=== PATIENT | female | born 1940 | race Caucasian/White ===

== ENCOUNTER → 2016-12-10 | Outpatient (CLI) | payer OTHER ==
[~2016-12-10] MED LIST: 5-FU IV; ACET65TA OR; ASPI81TA83 OR; LEUCOVORIN IV; LEVA500T OR; LISI5TAB PO; NEULASTA IV; OXALIPLATIN IV; SIMV10TA2 PO; VICO5TAB OR; [UNRECOGNIZED DRUG - OTHER] IV
--- NOTE | 2016-12-10 12:48 | REPMRS ---
Patient History The patient states she had a clinical breast exam in 11/2016. Patient is postmenopausal, has history of colorectal cancer at age 70, and had previous chemotherapy at age 70. No known family history of cancer. Digital Woman Screen Mammo: December 10, 2016 - Exam #: [id number] Bilateral CC and MLO view(s) were taken. Technologist: Binta Vo, Technologist Prior study comparison: December 12, 2015, digital woman screen mammo performed at [facility]. December 05, 2014, digital woman screen mammo performed at [facility]. FINDINGS: There are scattered fibroglandular densities. There has been no change in the appearance of the mammogram from the prior studies. There is a mild amount of residual fibroglandular tissue which is fairly symmetric. There is no interval development of dominant mass, architectural distortion, or clustered microcalcification suggestive of malignancy. ASSESSMENT: BI-RADS/ACR category 1 mammogram. Negative. Recommendation Routine screening mammogram in 1 year (for women over age 40). This mammogram was interpreted with the aid of an FDA-approved computer-aided dectection system. Electronically Signed By: Moe Crespo MD 12/10/16 2128
== END ==
LOC: M WHC 10:14
PROVIDERS: ATTEND Nurse Practitioner Women's Health
DX: Z01.419 Encounter for gynecological examination (general) (routine) without abnormal findings (principal); Z12.31 Encounter for screening mammogram for malignant neoplasm of breast; Z12.12 Encounter for screening for malignant neoplasm of rectum
CPT/HCPCS: 82270; G0101; G0202

== ENCOUNTER → 2017-02-01 | Outpatient (REF) | payer OTHER ==
[2017-02-01 14:58] LABS: FREE T4 1.22 NG/DL (0.76-1.46)
== END ==
LOC: M LAB REF 13:24
PROVIDERS: ATTEND Internal Medicine Medical Oncology
DX: C18.9 Malignant neoplasm of colon, unspecified (principal); Z79.899 Other long term (current) drug therapy

== ENCOUNTER → 2017-08-26 | Outpatient (REF) | payer OTHER ==
[2017-08-26 17:52] LABS: CARCINOEMBRYONIC ANTIGEN 2.3 NG/ML (<2.5)
== END ==
LOC: M LAB REF 16:40
DX: Z85.038 Personal history of other malignant neoplasm of large intestine (principal); R63.4 Abnormal weight loss
CPT/HCPCS: 82378

== ENCOUNTER → 2017-12-13 | Outpatient (CLI) | payer OTHER | LOC: M WHC 10:06 | DX: Z12.31 Encounter for screening mammogram for malignant neoplasm of breast (principal); Z01.419 Encounter for gynecological examination (general) (routine) without abnormal findings (principal); Z78.0 Asymptomatic menopausal state; Z86.010 Personal history of colon polyps; Z12.12 Encounter for screening for malignant neoplasm of rectum; Z92.21 Personal history of antineoplastic chemotherapy | CPT/HCPCS: 77067 ==

== ENCOUNTER → 2018-02-01 | Outpatient (REF) | payer OTHER ==
[2018-02-01 14:28] LABS: FERRITIN 58 NG/ML (8-252); IRON (FE) 76 UG/DL (50-170); PERCENT SATURATION 27.5 % (13.2-45.0); TOTAL IRON BINDING CAPACITY 276 UG/DL (250-450)
== END ==
LOC: M LAB REF 13:34
DX: C18.9 Malignant neoplasm of colon, unspecified (principal)
CPT/HCPCS: 82378

== ENCOUNTER → 2019-01-18 | Outpatient (REF) | payer MEDICARE ==
[~2019-01-18] MED LIST changes: +ASPI81TA26 PO; +CARB25TA9 PO; +GABA-843 PO; +MULTCAP PO; +NYST1POW9 TOP; +RASA1TAB PO
[2019-01-23 17:58] LABS: FERRITIN 32 NG/ML (8-252); IRON (FE) 72 UG/DL (50-170); PERCENT SATURATION 23.8 % (13.2-45.0); TOTAL IRON BINDING CAPACITY 302 UG/DL (250-450)
[2019-01-23 18:04] LABS: VITAMIN B12 LEVEL 542 PG/ML
[2019-01-23 18:05] LABS: FOLATE > 24.0 NG/ML
== END ==
LOC: M LAB REF 16:46
PROVIDERS: ATTEND Family Medicine
DX: E78.5 Hyperlipidemia, unspecified (principal); D64.9 Anemia, unspecified

== ENCOUNTER → 2019-01-23 | Outpatient (CLI) | payer MEDICARE ==
--- NOTE | 2019-01-23 13:31 | REPMRS ---
Patient History The patient states she had a clinical breast exam in 01/2019. No known family history of cancer. Digital Woman Screen Mammo: January 23, 2019 - Exam #: [id number] Bilateral CC and MLO view(s) were taken. Technologist: Rossi Salinas, Technologist Prior study comparison: December 13, 2017, digital woman screen mammo performed at [facility]. December 10, 2016, digital woman screen mammo performed at [facility]. December 12, 2015, digital woman screen mammo performed at [facility]. FINDINGS: There are scattered fibroglandular densities. There has been no change in the appearance of the mammogram from the prior studies. There is a mild amount of scattered fibroglandular density which is fairly symmetric. There is no interval development of dominant mass, architectural distortion, or clustered microcalcification suggestive of malignancy. 3-D tomosynthesis shows no additional findings. Assessment: BI-RADS/ACR category 1 mammogram. Negative Mammogram. Recommendation Routine screening mammogram of both breasts in 1 year (for women over age 40). This patient's Lifetime Breast Cancer RIsk is estimated at 2.1 %. This mammogram was interpreted with the aid of an FDA-approved computer-aided dectection system. Electronically Signed By: Manpreet Grace MD 01/23/19 0152
== END ==
LOC: M WHC 11:54
PROVIDERS: ATTEND Nurse Practitioner Women's Health
DX: Z01.419 Encounter for gynecological examination (general) (routine) without abnormal findings (principal); Z12.31 Encounter for screening mammogram for malignant neoplasm of breast
CPT/HCPCS: 77063; 77067; G0101

== ENCOUNTER → 2019-02-13 | Outpatient (CLI) | payer MEDICARE ==
--- NOTE | 2019-02-13 13:50 | REP ---
Clinical: Pelvic pain . Technique: Transabdominal pelvic ultrasound followed by transvaginal examination for better evaluation of the endometrium and adnexa with color Doppler evaluation of the ovaries. Findings: Bladder is unremarkable and measures 9.8 x 9.7 x 6.9 cm . Anteverted uterus measures 7.0 x 3.6 x 5.6 cm with 3.9 x 3.4 x 3.2 cm degenerating right-sided fibroid . The endometrial complex measures 2.9 mm thickness. No discrete uterine or endometrial abnormalities are appreciated. Right ovary is not visualized. Left ovary is normal in appearance and vascularity without torsion and measures 1.3 x 0.6 x 1.4 cm; RI 0.47. No pelvic free fluid or adnexal mass lesion Impression: 1. A 3.9 cm degenerating fibroid. 2. Normal left ovary. Right ovary not visualized.
== END ==
LOC: M WHC 12:15
PROVIDERS: ATTEND Nurse Practitioner Women's Health
DX: R10.2 Pelvic and perineal pain (principal)

== ENCOUNTER → 2019-12-28 | Outpatient (CLI) | payer MEDICARE ==
[~2019-12-28] MED LIST changes: +GASTROGRAFIN SOLUTION 30ML (Q9963) As Ordered ONE; +ISOVUE-370 76% 100ML VIAL As Ordered ONE; +SIMV10TA21 PO
--- NOTE | 2019-12-28 15:21 | REP ---
REASON: Colon carcinoma. Latest prior for comparison is 04/27/2016. CONTRAST TODAY: 100 mL Isovue-370. There is no mediastinal or hilar adenopathy. There are no pleural or pericardial effusions. The imaged osseous structures are unchanged. There are chronic changes, status quo. For description of the imaged upper abdomen please see the abdominal and pelvic CT report also made today. Evaluation of the lung haque shows stable-appearing chronic fibrotic and/or subsegmental atelectatic changes and a stable right middle lobe nodule, which is pleural based. No new abnormal nodules, masses, or opacities have developed. IMPRESSION: Stable CT findings as described above. Electronically Signed by Karel Schmid DO 12/28/2019 04:00 P
--- NOTE | 2019-12-28 15:33 | REP ---
REASON FOR EXAM: History of colon carcinoma followup. Latest prior abdominal CT, 06/07/2016, reviewed along with latest prior pelvic CT of 09/15/2017. CONTRAST TODAY: 100 mL Isovue-370. There is no significant change in appearance of the liver, gallbladder, spleen, pancreas, adrenal glands, or kidneys. The abdominal aorta and para-aortic regions are unchanged. The bowel loops and their mesenteries are essentially unchanged. There is no free fluid or free air. There is no evidence of an intra-abdominal mass or adenopathy. CT PELVIS: Uterine myomatous changes are noted, status quo. There is no pelvic mass or adenopathy. There is no free fluid or free air. The bowel loops and their mesenteries are again seen to be within normal limits. Bone window technique throughout the examination shows no significant change in appearance of the osseous structures. IMPRESSION: No significant change when compared to multiple prior exams. There is no evidence of acute or recurrent disease. Electronically Signed by Karel Schmid DO 12/28/2019 04:00 P
== END ==
LOC: M RAD 12:05
PROVIDERS: ATTEND Internal Medicine Hematology
DX: C18.9 Malignant neoplasm of colon, unspecified (principal); R91.8 Other nonspecific abnormal finding of lung field
CPT/HCPCS: 71260; 74177; Q9963; Q9967

== ENCOUNTER → 2020-01-14 | Outpatient (CLI) | payer MEDICARE ==
[~2020-01-14] MED LIST changes: -GASTROGRAFIN SOLUTION 30ML (Q9963) As Ordered ONE; -ISOVUE-370 76% 100ML VIAL As Ordered ONE
== END ==
LOC: M LABSMTC 11:31
PROVIDERS: ATTEND Anesthesiology
DX: Z01.818 Encounter for other preprocedural examination (principal); Z11.59 Encounter for screening for other viral diseases
CPT/HCPCS: C9803; U0003

== ENCOUNTER 2020-01-17 07:33 | Day surgery (SDC) | payer MEDICARE ==
[~2020-01-17] VITALS: Ht 165.1 cm; Wt 80.2 kg
[~2020-01-17 07:33] MED LIST changes: +LIDOCAINE 2% 100MG/5ML SDV (FOR ANES.) As Ordered ONE; +NS 1,000 ML IV ONE; +propofoL 200 MG/20 ML VIAL As Ordered ONE
[2020-01-17] MEDS ORDERED: propofoL 200 MG/20 ML VIAL As Ordered ONE (08:50)
--- NOTE | 2020-01-17 09:26 | ROOR ---
Patient Name: Ellie Hernandez Procedure Date: 01/17/2020 8:53 AM Date of : 1940 Age: 79 Room: [facility] Gender: Female Note Status: Finalized Procedure: Colonoscopy Indications: High risk colon cancer surveillance: Personal history of colon cancer, Last colonoscopy: July 2018, Patient had right hemicolectomy fo cancer December 2010. Recent CEA slightly increased to 3.7 Providers: Faheem Aguilar MD Referring MD: Lester Huynh MD Requesting Provider: Medicines: Monitored Anesthesia Care Complications: No immediate complications. Procedure: Pre-Anesthesia Assessment: - Prior to the procedure, a History and Physical was performed, and patient medications and allergies were reviewed. The patient is competent. The risks and benefits of the procedure and the sedation options and risks were discussed with the patient. All questions were answered and informed consent was obtained. Patient identification and proposed procedure were verified by the physician, the nurse and the anesthesiologist in the procedure room. Mental Status Examination: alert and oriented. Prophylactic Antibiotics: The patient does not require prophylactic antibiotics. Prior Anticoagulants: The patient has taken no previous anticoagulant or antiplatelet agents. ASA Grade Assessment: III - A patient with severe systemic disease. After reviewing the risks and benefits, the patient was deemed in satisfactory condition to undergo the procedure. The anesthesia plan was to use monitored anesthesia care (MAC). Immediately prior to administration of medications, the patient was re-assessed for adequacy to receive sedatives. The heart rate, respiratory rate, oxygen saturations, blood pressure, adequacy of pulmonary ventilation, and response to care were monitored throughout the procedure. The physical status of the patient was re-assessed after the procedure. The Colonoscope was introduced through the anus and advanced to the ileocolonic anastomosis. The colonoscopy was performed without difficulty. The patient tolerated the procedure well. The quality of the bowel preparation was excellent. Findings: The perianal and digital rectal examinations were normal. Multiple medium-mouthed diverticula were found in the sigmoid colon. There was evidence of a prior end-to-end ileo-colonic anastomosis in the proximal transverse colon. This was patent and was characterized by healthy appearing mucosa. The exam was otherwise without abnormality. Impression: - Diverticulosis in the sigmoid colon. - Patent end-to-end ileo-colonic anastomosis, characterized by healthy appearing mucosa. - The examination was otherwise normal. - No specimens collected. Recommendation: - Discharge patient to home. - Resume previous diet. - Continue present medications. - Repeat colonoscopy in 3 years for surveillance. Faheem Aguilar MD Faheem Aguilar MD 01/17/2020 9:26:05 AM Electronically signed by Faheem Aguilar MD Number of Addenda: 0 Note Initiated On: 01/17/2020 8:53 AM Estimated Blood Loss: Estimated blood loss: none.
[2020-01-17 09:40] VITALS: BP 124/71
== END 2020-01-17 10:12 | disposition home or self-care (01) ==
LOC: M OPP 07:33
PROVIDERS: ATTEND Surgery
DX: K57.30 Diverticulosis of large intestine without perforation or abscess without bleeding (principal); Z98.0 Intestinal bypass and anastomosis status; R97.0 Elevated carcinoembryonic antigen [CEA]; Z85.038 Personal history of other malignant neoplasm of large intestine; G20 Parkinson's disease; Z90.49 Acquired absence of other specified parts of digestive tract; Z79.82 Long term (current) use of aspirin; Z79.899 Other long term (current) drug therapy; Z08 Encounter for follow-up examination after completed treatment for malignant neoplasm

== ENCOUNTER → 2020-06-09 | Outpatient (CLI) | payer SELFPAY ==
[~2020-06-09] MED LIST changes: -LIDOCAINE 2% 100MG/5ML SDV (FOR ANES.) As Ordered ONE; -NS 1,000 ML IV ONE; -propofoL 200 MG/20 ML VIAL As Ordered ONE
== END ==
LOC: M LABSMTC 12:40
PROVIDERS: ATTEND Pediatrics
DX: Z20.828 Contact with and (suspected) exposure to other viral communicable diseases (principal)

== ENCOUNTER → 2020-12-08 | Outpatient (REF) | payer MEDICARE ==
[~2020-12-08] MED LIST changes: +GABA-282 PO; -GABA-843 PO
== END ==
LOC: M LAB REF 16:32
PROVIDERS: ATTEND Family Medicine
DX: Z85.038 Personal history of other malignant neoplasm of large intestine (principal); Z92.21 Personal history of antineoplastic chemotherapy

== ENCOUNTER 2021-03-04 09:28 | Emergency (ER) | payer MEDICARE ==
[~2021-03-04] VITALS: Ht 162.6 cm; Wt 81.8 kg
--- NOTE | 2021-03-04 11:27 | REP ---
INDICATION: fall, pain left knee COMPARISON: None. TECHNIQUE: Four views left knee. FINDINGS: There is no evidence of acute fracture, dislocation, or intrinsic bone disease.There is mild diffuse joint space narrowing. There is a small suprapatellar effusion. IMPRESSION: No fracture or dislocation. Small effusion. <Electronically signed by Moe Crespo > 03/04/21 [id number]
[2021-03-04 13:39] LABS: BASO % 0.5 % (0.0-1.0); EOS # 0.1 10^3/uL (0.0-0.5); EOS % 1.7 % (0.0-3.0); HEMATOCRIT 35.3 % (36.0-47.0); HEMOGLOBIN 11.2 g/dl (12.0-15.5); LYMPH # 1.6 10^3/uL (1.5-5.0); LYMPH % 25.6 % (24.0-44.0); MEAN CORPUSCULAR HEMOGLOBIN 29.9 pg (27.0-33.0); MEAN CORPUSCULAR HGB CONC 31.7 g/dl (32.0-36.5); MEAN CORPUSCULAR VOLUME 94.4 fl (80.0-96.0); MONO # 0.5 10^3/uL (0.0-0.8); MONO % 8.4 % (2.0-8.0); NEUTROPHILS % 63.6 % (36.0-66.0); PLATELET COUNT, AUTOMATED 216 10^3/uL (150-450); RED BLOOD COUNT 3.74 10^6/uL (4.00-5.40); WHITE BLOOD COUNT 6.3 10^3/uL (4.0-10.0)
[2021-03-04 14:08] LABS: BLOOD UREA NITROGEN 25 MG/DL (7-18); CALCIUM LEVEL 9.3 MG/DL (8.8-10.2); CARBON DIOXIDE LEVEL 28 MEQ/L (21-32); CHLORIDE LEVEL 109 MEQ/L (98-107); CK-MB VALUE MASS 3.7 NG/ML (<3.6); CPK CREATINE PHOSPHOKINASE 204 U/L (26-192); CREATININE FOR GFR 0.69 MG/DL (0.55-1.30); GLOMERULAR FILTRATION RATE > 60.0 (>32); GLUCOSE, FASTING 92 MG/DL (70-100); MB/CK RELATIVE INDEX 1.81 (< OR =4); NT-PRO BNP 294 PG/ML (<450); POTASSIUM SERUM 4.1 MEQ/L (3.5-5.1); SODIUM LEVEL 143 MEQ/L (136-145); TROPONIN I < 0.02 NG/ML (< 0.10)
--- NOTE | 2021-03-04 15:06 | REP ---
INDICATION: b/l lower extremity edema. COMPARISON: Comparison chest x-ray July 13, 2011. TECHNIQUE: Two views.. FINDINGS: There is an even tear a bass of the right hemidiaphragm. There is a moderate S-shaped thoracolumbar scoliotic curve which appears a little more pronounced than it did in 2011. No acute bony abnormality is seen. Arthropathy changes are noted in the right shoulder. Cardiomegaly is observed. Pulmonary vasculature is slightly cephalized. There is no evidence of pleural effusion or pulmonary edema. No focal infiltrate is seen. IMPRESSION: Cardiomegaly. Pulmonary vascular cephalization. No evidence of infiltrate, pleural effusion, or pulmonary edema. <Electronically signed by Manpreet Grace > 03/04/21 [id number]
[2021-03-04 16:20] VITALS: BP 169/73
--- NOTE | 2021-03-05 17:29 | ECGEPIP ---
[facility] - ED Test Date: 2021-03-04 Pat Name: CHARLY DOWNS Department: Room: - Gender: Female [employer] Operator: PAYAL : 1940 Requested By: OJ Cee PA-C Order Number: [id number] Reading MD: Parag Haro Measurements Intervals [place] Rate: 66 P: 25 ID: [id number] QRS: -19 QRSD: 80 T: 25 QT: 442 QTc: 463 Interpretive Statements Normal sinus rhythm Comparison tracing not on file Electronically Signed on 03-05-2021 17:29:23 EDT by Parag Haro
--- NOTE | 2021-03-08 15:42 | ED PDOC ---
Post-Departure Follow-Up radiology report faxed to Shasha Larson MD Mar 08, 2021 15:42
== END 2021-03-04 16:22 | disposition home or self-care (01) ==
LOC: M ED 09:28
DX: S80.02XA Contusion of left knee, initial encounter (principal); W01.0XXA Fall on same level from slipping, tripping and stumbling without subsequent striking against object, initial encounter; Y93.89 Activity, other specified; Y92.89 Other specified places as the place of occurrence of the external cause; Y99.9 Unspecified external cause status; M25.462 Effusion, left knee; R60.0 Localized edema; I51.7 Cardiomegaly; I28.8 Other diseases of pulmonary vessels; G20 Parkinson's disease; M54.9 Dorsalgia, unspecified; M41.9 Scoliosis, unspecified; E66.9 Obesity, unspecified; Z85.038 Personal history of other malignant neoplasm of large intestine; Z92.3 Personal history of irradiation; Z92.21 Personal history of antineoplastic chemotherapy; Z79.82 Long term (current) use of aspirin; Z79.899 Other long term (current) drug therapy

== ENCOUNTER → 2021-04-17 | Outpatient (CLI) | payer MEDICARE ==
[~2021-04-17] MED LIST changes: +GASTROGRAFIN SOLUTION 30ML (Q9963) As Ordered ONE; +HYDR-4571; +ISOVUE-370 76% 100ML VIAL As Ordered ONE
--- NOTE | 2021-04-17 14:10 | REP ---
INDICATION: COLON CA COMPARISON: 12/28/2019. TECHNIQUE: CT Scan of the abdomen and pelvis was performed with intravenous administration of 100 cc of Isovue 370, and oral contrast. Sagittal and coronal reconstruction images are performed. FINDINGS: Lung bases: There are mild fibro atelectatic changes. There is a small hiatal hernia. Liver: Normal Gallbladder: Unremarkable. Spleen: Normal. Adrenals: Normal. Pancreas: Normal. Kidneys: There is a probable 8 mm cyst of the right kidney unchanged. There is no hydronephrosis bilaterally. Small and large bowel: Unremarkable. Free fluid: None. Abdominal aorta: No aneurysm or dissection. Adenopathy: None. Osseous structures: There are diffuse degenerative changes of the spine, with a stable severe compression deformity of L1. Pelvis: Once again there appear to be multiple small calcified fibroids in the uterus. No adnexal mass is seen. The urinary bladder is mildly distended and grossly unremarkable. IMPRESSION: Stable exam. No evidence of recurrent neoplasm or adenopathy. <Electronically signed by Moe Crespo > 04/17/21 [id number]
== END ==
LOC: M RAD 11:46
PROVIDERS: ATTEND Specialist
DX: C18.9 Malignant neoplasm of colon, unspecified (principal); K44.9 Diaphragmatic hernia without obstruction or gangrene; M51.36 Other intervertebral disc degeneration, lumbar region
CPT/HCPCS: 74177; Q9963; Q9967

== ENCOUNTER → 2021-04-23 | Outpatient (CLI) | payer MEDICARE ==
[~2021-04-23] MED LIST changes: -GASTROGRAFIN SOLUTION 30ML (Q9963) As Ordered ONE; -ISOVUE-370 76% 100ML VIAL As Ordered ONE
== END ==
LOC: M WHC 10:23
PROVIDERS: ATTEND Nurse Practitioner Women's Health
DX: Z53.9 Procedure and treatment not carried out, unspecified reason (principal)

== ENCOUNTER → 2021-05-08 | Outpatient (REF) | payer MEDICARE ==
[~2021-05-08] MED LIST changes: +VITMTA PO
== END ==
LOC: M LAB REF 16:19
PROVIDERS: ATTEND Family Medicine
DX: N39.0 Urinary tract infection, site not specified (principal)

== ENCOUNTER → 2022-07-15 | Outpatient (CLI) | payer MEDICARE, OTHER ==
[~2022-07-15] MED LIST changes: +DOCU-153 PO; +DONE10TA90; +NYST-13; +PRESCAP
== END ==
LOC: M LABSMTC 09:23
PROVIDERS: ATTEND Anesthesiology
DX: Z01.812 Encounter for preprocedural laboratory examination (principal); Z20.822 Contact with and (suspected) exposure to COVID-19

== ENCOUNTER 2022-07-20 07:06 | Day surgery (SDC) | payer MEDICARE ==
[~2022-07-20] VITALS: Ht 165.1 cm; Wt 66.1 kg
[~2022-07-20 07:06] MED LIST changes: +NS 1,000 ML IV ONE
[2022-07-20] MEDS ORDERED: propofoL 200 MG/20 ML VIAL As Ordered ONE (07:53)
[2022-07-20] MEDS ORDERED: fentaNYL 100 MCG/2 ML INJECTION As Ordered ONE (07:53)
[2022-07-20 09:25] VITALS: BP 146/76
== END 2022-07-20 09:31 | disposition home or self-care (01) ==
LOC: M OPP 07:06
PROVIDERS: ATTEND Internal Medicine Gastroenterology
DX: K57.30 Diverticulosis of large intestine without perforation or abscess without bleeding (principal); C19 Malignant neoplasm of rectosigmoid junction; K64.4 Residual hemorrhoidal skin tags; K64.8 Other hemorrhoids; K25.7 Chronic gastric ulcer without hemorrhage or perforation; Z98.0 Intestinal bypass and anastomosis status; K29.70 Gastritis, unspecified, without bleeding; Z79.82 Long term (current) use of aspirin; Z79.899 Other long term (current) drug therapy; G20 Parkinson's disease; G35 Multiple sclerosis; I10 Essential (primary) hypertension; Z92.21 Personal history of antineoplastic chemotherapy
CPT/HCPCS: 43239; 45378; 88305; J3010

== ENCOUNTER → 2023-12-06 | Outpatient (REF) | payer MEDICARE ==
[~2023-12-06] MED LIST changes: -DOCU-153 PO; -NS 1,000 ML IV ONE; +PRESCAP PO; +STOO100C30 PO
== END ==
LOC: M LAB REF 12:18
PROVIDERS: ATTEND Physician Assistant Medical
DX: N39.0 Urinary tract infection, site not specified (principal)

== ENCOUNTER → 2024-01-05 | Outpatient (REF) | payer MEDICARE ==
[2024-01-05 14:28] LABS: APPEARANCE, URINE CLOUDY (CLEAR); BACTERIA, URINE AUTO 1+ (NEGATIVE); BILIRUBIN, URINE AUTO NEGATIVE (NEGATIVE); BLOOD, URINE BLOOD NEGATIVE (NEGATIVE); CALCIUM OXALATE CRYSTALS SMALL; COLOR, URINE AMBER (YELLOW); GLUCOSE, URINE (UA) AUTO NEGATIVE (NEGATIVE); KETONE, URINE AUTO TRACE mg/dL (NEGATIVE); LEUKOCYTE ESTERASE, URINE AUTO 1+ (NEGATIVE); MUCUS, URINE SMALL (NEGATIVE); NITRITE, URINE AUTO NEGATIVE (NEGATIVE); PROTEIN, URINE AUTO 1+ mg/dL (NEGATIVE); RBC, URINE AUTO 6 /HPF (0-3); SPECIFIC GRAVITY URINE AUTO 1.017 (1.002-1.035); SQUAMOUS EPITHELIAL CELL UR AU 1 /HPF (0-6); WBC, URINE AUTO 9 /HPF (0-3)
== END ==
LOC: M LAB REF 13:13
PROVIDERS: ATTEND Family Medicine
DX: R41.3 Other amnesia (principal); R26.89 Other abnormalities of gait and mobility

== ENCOUNTER → 2024-02-06 | Outpatient (REF) | payer MEDICARE | LOC: M LAB REF 11:42 | PROVIDERS: ATTEND Family Medicine | DX: Z85.038 Personal history of other malignant neoplasm of large intestine (principal) ==

== ENCOUNTER → 2024-06-13 | Outpatient (REF) | payer MEDICARE ==
[~2024-06-13] MED LIST changes: +GABA-1172 PO; -GABA-282 PO
== END ==
LOC: M LAB REF 16:57
PROVIDERS: ATTEND Family Medicine
DX: Z85.038 Personal history of other malignant neoplasm of large intestine (principal)

== ENCOUNTER 2024-09-15 10:10 | Inpatient (IN) | payer MEDICARE ==
[~2024-09-15] VITALS: Ht 162.6 cm; Wt 59.1 kg
[~2024-09-15 10:10] MED LIST changes: +NYST1POW3 TOP; -NYST1POW9 TOP
[2024-09-15] MEDS ORDERED: CEFD1CAP9 PO (10:40)
[2024-09-15] MEDS ORDERED: DOCU100C16 PO (10:40)
[2024-09-15] MEDS ORDERED: MEMA10TA PO (10:40)
[2024-09-15] MEDS ORDERED: DONE10TA90 PO (10:40)
[2024-09-15 13:16] LABS: APPEARANCE, URINE CLOUDY (CLEAR); BACTERIA, URINE AUTO 1+ (NEGATIVE); BILIRUBIN, URINE AUTO NEGATIVE (NEGATIVE); BLOOD, URINE BLOOD NEGATIVE (NEGATIVE); COLOR, URINE YELLOW (YELLOW); GLUCOSE, URINE (UA) AUTO NEGATIVE (NEGATIVE); KETONE, URINE AUTO NEGATIVE (NEGATIVE); LEUKOCYTE ESTERASE, URINE AUTO 3+ (NEGATIVE); NITRITE, URINE AUTO NEGATIVE (NEGATIVE); PROTEIN, URINE AUTO 2+ mg/dL (NEGATIVE); RBC, URINE AUTO 42 /HPF (0-3); SPECIFIC GRAVITY URINE AUTO 1.016 (1.002-1.035); SQUAMOUS EPITHELIAL CELL UR AU 4 /HPF (0-6); UROBILINOGEN, URINE AUTO 0.2 mg/dL (0.0-2.0); WBC, URINE AUTO TNTC /HPF (0-3)
[2024-09-15 13:17] LABS: HEMATOCRIT 38.6 % (36.0-47.0); HEMOGLOBIN 12.4 g/dl (12.0-15.5); MEAN CORPUSCULAR HGB CONC 32.1 g/dl (32.0-36.5); MEAN CORPUSCULAR VOLUME 96.5 fl (80.0-96.0); PLATELET COUNT, AUTOMATED 174 10^3/uL (150-450); WHITE BLOOD COUNT 3.4 10^3/uL (4.0-10.0)
[2024-09-15 13:42] LABS: ALBUMIN 3.2 G/DL (3.2-5.2); ALKALINE PHOSPHATASE 79 U/L (35-104); ALT/SGPT 19 U/L (7.0-40); AST/SGOT 58 U/L (<34); BILIRUBIN,TOTAL 0.5 MG/DL (0.3-1.2); BLOOD UREA NITROGEN 18 MG/DL (9-23); CALCIUM LEVEL 8.7 MG/DL (8.3-10.6); CARBON DIOXIDE LEVEL 30 MMOL/L (20-31); CHLORIDE LEVEL 103 MMOL/L (98-107); CREATININE FOR GFR 0.69 MG/DL (0.55-1.30); GLOMERULAR FILTRATION RATE > 60.0 (>32); GLUCOSE, FASTING 90 MG/DL (74-106); POTASSIUM SERUM 3.9 MMOL/L (3.5-5.1); SODIUM LEVEL 142 MMOL/L (136-145); TOTAL PROTEIN 6.8 G/DL (5.7-8.2)
[2024-09-15] MEDS: IPRATROPIUM 0.5MG/ALBUTEROL 2.5MG INH SOL UD 3ML (DUONEB) NEB SCH (14:00)
[2024-09-15] MEDS ORDERED: IPRATROPIUM 0.5MG/ALBUTEROL 2.5MG INH SOL UD 3ML (DUONEB) NEB PRN (16:00)
[2024-09-15] MEDS ORDERED: GABA-1171 PO (16:21)
[2024-09-15] MEDS ORDERED: MULT-40 PO (16:21)
[2024-09-15] MEDS ORDERED: HOME MED LIST COMPLETE! XX SCH (16:25)
[2024-09-15] MEDS: cefTRIAXone SOD 1 GM in DEXTROSE 5% (D5W) ADV/MINI-BAG 50 ML IV SCH (17:22)
[2024-09-15] MEDS: OSELTAMIVIR PHOSPHATE 30MG CAPSULE PO ONE (17:24)
[2024-09-15] MEDS: GABAPENTIN 100 MG CAP PO SCH (23:25)
[2024-09-16 00:24] VITALS: BP 147/67; TEMP 97.7; O2SAT 94
[2024-09-16] MEDS: DOCUSATE SODIUM 100MG CAPSULE PO SCH (00:48)
[2024-09-16] MEDS: MEMANTINE 5MG TABLET (NAMENDA) PO SCH (00:49)
[2024-09-16] MEDS: SINEMET 25-100 MG TAB PO SCH (00:49)
[2024-09-16 04:19] VITALS: BP 128/68; TEMP 97.3; O2SAT 94
[2024-09-16 05:59] LABS: HEMATOCRIT 35.7 % (36.0-47.0); HEMOGLOBIN 11.3 g/dl (12.0-15.5); MEAN CORPUSCULAR HEMOGLOBIN 30.6 pg (27.0-33.0); MEAN CORPUSCULAR HGB CONC 31.7 g/dl (32.0-36.5); MEAN CORPUSCULAR VOLUME 96.7 fl (80.0-96.0); PLATELET COUNT, AUTOMATED 162 10^3/uL (150-450); RED BLOOD COUNT 3.69 10^6/uL (4.00-5.40); WHITE BLOOD COUNT 3.5 10^3/uL (4.0-10.0)
[2024-09-16 06:27] LABS: BLOOD UREA NITROGEN 22 MG/DL (9-23); CALCIUM LEVEL 8.2 MG/DL (8.3-10.6); CARBON DIOXIDE LEVEL 28 MMOL/L (20-31); CHLORIDE LEVEL 108 MMOL/L (98-107); CREATININE FOR GFR 0.67 MG/DL (0.55-1.30); GLOMERULAR FILTRATION RATE > 60.0 (>32); GLUCOSE, FASTING 90 MG/DL (74-106); POTASSIUM SERUM 3.8 MMOL/L (3.5-5.1); SODIUM LEVEL 145 MMOL/L (136-145)
[2024-09-16] MEDS: NYSTATIN 100,000 UNITS/GM TOPICAL PWD 15GM TOP SCH (08:13)
[2024-09-16] MEDS: ENOXAPARIN 40MG/0.4ML SYRINGE (J1650 PER 10MG) SC SCH (08:14)
[2024-09-16] MEDS: OSELTAMIVIR PHOSPHATE 30MG CAPSULE PO SCH (08:18)
[2024-09-16 12:00] VITALS: BP 117/57; TEMP 97.9; O2SAT 94
[2024-09-16 20:11] VITALS: BP 112/50; TEMP 98.2; O2SAT 94
[2024-09-16] MEDS: DONEPEZIL 5 MG TAB PO SCH (20:15)
[2024-09-17 04:30] VITALS: BP 126/63; TEMP 98.4; O2SAT 95
[2024-09-17 12:00] VITALS: BP 123/61; TEMP 97.9; O2SAT 94
[2024-09-17 19:41] VITALS: BP 125/61; TEMP 98.4; O2SAT 94
[2024-09-18 04:18] VITALS: BP 131/78; TEMP 97.9; O2SAT 98
[2024-09-18 06:26] LABS: HEMATOCRIT 32.3 % (36.0-47.0); HEMOGLOBIN 10.3 g/dl (12.0-15.5); MEAN CORPUSCULAR HGB CONC 31.9 g/dl (32.0-36.5); MEAN CORPUSCULAR VOLUME 97.3 fl (80.0-96.0); PLATELET COUNT, AUTOMATED 150 10^3/uL (150-450); RED BLOOD COUNT 3.32 10^6/uL (4.00-5.40)
[2024-09-18] MEDS: CEFDINIR 300 MG CAP (OMNICEF) PO SCH (08:34)
[2024-09-18] MEDS: guaiFENesin DM LIQ 10ML UD PO PRN (10:23)
[2024-09-18 12:00] VITALS: BP 131/61; TEMP 97.7; O2SAT 95
[2024-09-19 04:21] VITALS: BP 152/76; TEMP 98.4; O2SAT 95
[2024-09-20 05:38] VITALS: BP 151/81; TEMP 98.1; O2SAT 95
[2024-09-21 04:00] VITALS: BP 148/74; TEMP 97.5; O2SAT 98
[2024-09-21 06:27] LABS: HEMATOCRIT 33.5 % (36.0-47.0); HEMOGLOBIN 10.3 g/dl (12.0-15.5); MEAN CORPUSCULAR HEMOGLOBIN 29.8 pg (27.0-33.0); MEAN CORPUSCULAR HGB CONC 30.7 g/dl (32.0-36.5); MEAN CORPUSCULAR VOLUME 96.8 fl (80.0-96.0); PLATELET COUNT, AUTOMATED 234 10^3/uL (150-450); RED BLOOD COUNT 3.46 10^6/uL (4.00-5.40); WHITE BLOOD COUNT 4.1 10^3/uL (4.0-10.0)
[2024-09-22 04:00] VITALS: BP 141/73; TEMP 97.3; O2SAT 97
[2024-09-23 04:00] VITALS: BP 136/70; TEMP 97.3; O2SAT 99
[2024-09-23 12:00] VITALS: BP 116/58; TEMP 96.7; O2SAT 95
[2024-09-24 03:38] VITALS: BP 115/54; TEMP 97.5; O2SAT 95
[2024-09-24 06:22] LABS: HEMATOCRIT 32.7 % (36.0-47.0); HEMOGLOBIN 10.3 g/dl (12.0-15.5); MEAN CORPUSCULAR HGB CONC 31.5 g/dl (32.0-36.5); MEAN CORPUSCULAR VOLUME 98.5 fl (80.0-96.0); PLATELET COUNT, AUTOMATED 272 10^3/uL (150-450); RED BLOOD COUNT 3.32 10^6/uL (4.00-5.40)
[2024-09-24] MEDS ORDERED: ISOVUE-370 76% 100ML VIAL As Ordered ONE (10:58)
[2024-09-24] MEDS: cefTRIAXone SOD 1 GM in DEXTROSE 5% (D5W) ADV/MINI-BAG 50 ML IV SCH (16:52)
[2024-09-24 17:19] LABS: BASO % 0.3 % (0.0-1.0); EOS # 0.2 10^3/uL (0.0-0.5); EOS % 2.6 % (0.0-3.0); HEMATOCRIT 36.3 % (36.0-47.0); HEMOGLOBIN 11.5 g/dl (12.0-15.5); LYMPH # 1.8 10^3/uL (1.5-5.0); LYMPH % 31.4 % (24.0-44.0); MEAN CORPUSCULAR HEMOGLOBIN 31.1 pg (27.0-33.0); MEAN CORPUSCULAR HGB CONC 31.7 g/dl (32.0-36.5); MEAN CORPUSCULAR VOLUME 98.1 fl (80.0-96.0); MONO # 0.5 10^3/uL (0.0-0.8); MONO % 8.4 % (2.0-8.0); NEUTROPHILS # 3.3 10^3/uL (1.5-8.5); NEUTROPHILS % 56.3 % (36.0-66.0); PLATELET COUNT, AUTOMATED 303 10^3/uL (150-450); WHITE BLOOD COUNT 5.8 10^3/uL (4.0-10.0)
[2024-09-24] MEDS: VANCOMYCIN HCL 1,000 MG, VIAL MATE ADAPTER 1 EACH in NS 250 ML IV ONE (17:21)
[2024-09-24 17:54] LABS: BLOOD UREA NITROGEN 25 MG/DL (9-23); C REACTIVE PROTEIN QUANTITATIV < 0.50 MG/DL (<1.0); CARBON DIOXIDE LEVEL 29 MMOL/L (20-31); CHLORIDE LEVEL 108 MMOL/L (98-107); CREATININE FOR GFR 0.63 MG/DL (0.55-1.30); GLOMERULAR FILTRATION RATE > 60.0 (>32); GLUCOSE, FASTING 121 MG/DL (74-106); POTASSIUM SERUM 4.1 MMOL/L (3.5-5.1); SODIUM LEVEL 144 MMOL/L (136-145)
[2024-09-24 18:01] LABS: PROCALCITONIN <0.04 ng/ml
[2024-09-24 20:27] VITALS: BP 121/58; TEMP 97.7; O2SAT 98
[2024-09-25 03:34] VITALS: BP 124/60; TEMP 97.3; O2SAT 97
[2024-09-25] MEDS: VANCOMYCIN HCL 750 MG, VIAL MATE ADAPTER 1 EACH in NS 250 ML IV SCH (06:01)
[2024-09-25 09:56] LABS: BASO % 0.6 % (0.0-1.0); EOS # 0.2 10^3/uL (0.0-0.5); HEMATOCRIT 36.1 % (36.0-47.0); HEMOGLOBIN 11.3 g/dl (12.0-15.5); LYMPH # 1.4 10^3/uL (1.5-5.0); MEAN CORPUSCULAR HEMOGLOBIN 31.2 pg (27.0-33.0); MEAN CORPUSCULAR HGB CONC 31.3 g/dl (32.0-36.5); MEAN CORPUSCULAR VOLUME 99.7 fl (80.0-96.0); MONO # 0.3 10^3/uL (0.0-0.8); MONO % 6.2 % (2.0-8.0); NEUTROPHILS % 60.4 % (36.0-66.0); PLATELET COUNT, AUTOMATED 293 10^3/uL (150-450); RED BLOOD COUNT 3.62 10^6/uL (4.00-5.40)
[2024-09-25 10:03] LABS: ERYTHROCYTE SEDIMENTATION RATE 42 mm/hr (0-30)
[2024-09-25 10:39] LABS: BLOOD UREA NITROGEN 24 MG/DL (9-23); C REACTIVE PROTEIN QUANTITATIV < 0.50 MG/DL (<1.0); CARBON DIOXIDE LEVEL 32 MMOL/L (20-31); CHLORIDE LEVEL 106 MMOL/L (98-107); CREATININE FOR GFR 0.62 MG/DL (0.55-1.30); GLOMERULAR FILTRATION RATE > 60.0 (>32); GLUCOSE, FASTING 102 MG/DL (74-106); POTASSIUM SERUM 4.3 MMOL/L (3.5-5.1); SODIUM LEVEL 144 MMOL/L (136-145)
[2024-09-25 12:00] VITALS: BP 151/78; TEMP 97.5; O2SAT 98
[2024-09-25] MEDS ORDERED: LIDOCAINE 1% MDV 20ML VIAL As Ordered ONE (13:58)
[2024-09-25 15:00] LABS: SOURCE, BODY FLUID LT SHOULDER; SYNOVIAL FLUID COLOR YELLOW (COLORLESS)
[2024-09-25 15:35] LABS: CRYSTALS, BODY FLUID NONE SEEN (NONE SEEN); SOURCE, BODY FLUID CRYSTALS LT SHOULDER
[2024-09-25 21:15] VITALS: BP 148/55; TEMP 97.7; O2SAT 95
[2024-09-26] MEDS: RAMELTEON 8 MG TAB (ROZEREM) PO PRN (00:09)
[2024-09-26 04:50] VITALS: BP 150/74; TEMP 97.5; O2SAT 98
[2024-09-26] MEDS: LACTOBACILLUS ACIDOPHILUS CAP (BACID) PO SCH (09:34)
[2024-09-26] MEDS: CEFDINIR 300 MG CAP (OMNICEF) PO SCH (09:34)
[2024-09-26 09:38] VITALS: BP 115/56
[2024-09-26 11:44] VITALS: BP 113/58; TEMP 97.7; O2SAT 98
[2024-09-26 19:59] VITALS: BP 139/66; TEMP 97.5; O2SAT 98
[2024-09-27 04:52] VITALS: BP 148/74; TEMP 97.5; O2SAT 97
[2024-09-27 05:42] LABS: HEMATOCRIT 37.3 % (36.0-47.0); HEMOGLOBIN 11.4 g/dl (12.0-15.5); MEAN CORPUSCULAR HEMOGLOBIN 30.2 pg (27.0-33.0); MEAN CORPUSCULAR HGB CONC 30.6 g/dl (32.0-36.5); MEAN CORPUSCULAR VOLUME 98.7 fl (80.0-96.0); PLATELET COUNT, AUTOMATED 269 10^3/uL (150-450); RED BLOOD COUNT 3.78 10^6/uL (4.00-5.40); WHITE BLOOD COUNT 4.5 10^3/uL (4.0-10.0)
[2024-09-27 12:00] VITALS: BP 101/57; TEMP 97.5; O2SAT 99
[2024-09-27 20:00] VITALS: BP 119/59; TEMP 97.7; O2SAT 96
[2024-09-27 23:53] VITALS: BP 148/78; TEMP 97.3; O2SAT 95
[2024-09-28 06:00] VITALS: BP 160/75; TEMP 97.3; O2SAT 97
[2024-09-29 05:37] VITALS: BP 152/79; TEMP 97.3; O2SAT 96
[2024-09-30 04:00] VITALS: BP 185/73; TEMP 97.5; O2SAT 97
[2024-10-01 04:00] VITALS: BP 124/61; TEMP 97.3; O2SAT 94
[2024-10-02 03:14] VITALS: BP 127/66; TEMP 97.3; O2SAT 99
[2024-10-02 04:00] VITALS: O2SAT 99
[2024-10-02 09:08] VITALS: BP 113/57
[2024-10-02] MEDS ORDERED: RISATAB3 PO (13:18)
[2024-10-02] MEDS ORDERED: AMLO25TA PO (13:18)
[2024-10-02] MEDS ORDERED: CEFD300CAP PO (13:18)
== END 2024-10-02 15:06 | disposition home health service (06) | DRG 194 ==
LOC: M ED 10:10 → EEVIPCON 10:11 → M ED INP 10:11 → M MSPAV 09-16 00:15 → OBSVTOIN 09-24 16:32 → M MSPAV 09-25 16:28
PROVIDERS: ADMIT Internal Medicine; ATTEND Internal Medicine
PROC: 0R9K3ZX Drainage of Left Shoulder Joint, Percutaneous Approach, Diagnostic (ICD-10-PCS; principal; 2024-09-25 13:30)
DX: J10.1 Influenza due to other identified influenza virus with other respiratory manifestations (principal); N39.0 Urinary tract infection, site not specified; Z66 Do not resuscitate; G20.C Parkinsonism, unspecified; F02.80 Dementia in other diseases classified elsewhere, unspecified severity, without behavioral disturbance, psychotic disturbance, mood disturbance, and anxiety; B96.20 Unspecified Escherichia coli [E. coli] as the cause of diseases classified elsewhere; I10 Essential (primary) hypertension; R91.1 Solitary pulmonary nodule; M25.412 Effusion, left shoulder; Z85.038 Personal history of other malignant neoplasm of large intestine; Z90.49 Acquired absence of other specified parts of digestive tract; Z79.82 Long term (current) use of aspirin; Z79.899 Other long term (current) drug therapy; Z92.21 Personal history of antineoplastic chemotherapy

== ENCOUNTER → 2024-11-27 | Outpatient (CLI) | payer MEDICARE ==
[~2024-11-27] MED LIST changes: +AMLO25TA PO; +CEFD1CAP9 PO; +CEFD300CAP PO; +DOCU100C16 PO; +DONE10TA90 PO; +GABA-1171 PO; +ISOVUE-370 76% 100ML VIAL ONE; +MEMA10TA PO; +MULT-40 PO; +RISATAB3 PO
== END ==
LOC: M PLAIMG 07:46
PROVIDERS: ATTEND Family Medicine
DX: R91.1 Solitary pulmonary nodule (principal)
CPT/HCPCS: 71260; Q9967

== ENCOUNTER → 2024-12-21 | Outpatient (REF) | payer MEDICARE ==
[~2024-12-21] MED LIST changes: -ISOVUE-370 76% 100ML VIAL ONE; -NYST-13; +NYST0.1C
[2024-12-21 12:55] LABS: BASO % 0.3 % (0.0-1.0); EOS # 0.1 10^3/uL (0.0-0.5); EOS % 1.4 % (0.0-3.0); HEMATOCRIT 40.3 % (36.0-47.0); HEMOGLOBIN 12.7 g/dl (12.0-15.5); LYMPH # 2.1 10^3/uL (1.5-5.0); LYMPH % 29.6 % (24.0-44.0); MEAN CORPUSCULAR HEMOGLOBIN 31.4 pg (27.0-33.0); MEAN CORPUSCULAR HGB CONC 31.5 g/dl (32.0-36.5); MEAN CORPUSCULAR VOLUME 99.5 fl (80.0-96.0); MONO # 0.5 10^3/uL (0.0-0.8); MONO % 6.3 % (2.0-8.0); NEUTROPHILS # 4.4 10^3/uL (1.5-8.5); PLATELET COUNT, AUTOMATED 238 10^3/uL (150-450); RED BLOOD COUNT 4.05 10^6/uL (4.00-5.40); WHITE BLOOD COUNT 7.2 10^3/uL (4.0-10.0)
[2024-12-21 13:05] LABS: APPEARANCE, URINE HAZY (CLEAR); BACTERIA, URINE AUTO 1+ (NEGATIVE); BILIRUBIN, URINE AUTO NEGATIVE (NEGATIVE); BLOOD, URINE BLOOD NEGATIVE (NEGATIVE); COLOR, URINE AMBER (YELLOW); GLUCOSE, URINE (UA) AUTO NEGATIVE (NEGATIVE); KETONE, URINE AUTO TRACE mg/dL (NEGATIVE); LEUKOCYTE ESTERASE, URINE AUTO TRACE (NEGATIVE); MUCUS, URINE SMALL (NEGATIVE); NITRITE, URINE AUTO NEGATIVE (NEGATIVE); PROTEIN, URINE AUTO NEGATIVE (NEGATIVE); RBC, URINE AUTO 1 /HPF (0-3); SQUAMOUS EPITHELIAL CELL UR AU 3 /HPF (0-6); UROBILINOGEN, URINE AUTO 0.2 mg/dL (0.0-2.0); WBC, URINE AUTO 4 /HPF (0-3)
[2024-12-21 13:26] LABS: ALBUMIN 3.4 G/DL (3.2-5.2); ALKALINE PHOSPHATASE 116 U/L (35-104); ALT/SGPT < 9 U/L (7.0-40); AST/SGOT 14 U/L (<34); BILIRUBIN,TOTAL 0.4 MG/DL (0.3-1.2); BLOOD UREA NITROGEN 26 MG/DL (9-23); CALCIUM LEVEL 9.6 MG/DL (8.3-10.6); CARBON DIOXIDE LEVEL 30 MMOL/L (20-31); CHLORIDE LEVEL 104 MMOL/L (98-107); CREATININE FOR GFR 0.62 MG/DL (0.55-1.30); GLOMERULAR FILTRATION RATE 87.8 (>32); GLUCOSE, FASTING 90 MG/DL (74-106); MAGNESIUM LEVEL 2.3 MG/DL (1.8-2.4); POTASSIUM SERUM 4.4 MMOL/L (3.5-5.1); SODIUM LEVEL 142 MMOL/L (136-145); TOTAL PROTEIN 6.7 G/DL (5.7-8.2)
== END ==
LOC: M LAB REF 12:30
PROVIDERS: ATTEND Family Medicine
DX: I10 Essential (primary) hypertension (principal); Z91.81 History of falling; R53.1 Weakness; E11.9 Type 2 diabetes mellitus without complications

== ENCOUNTER → 2025-01-02 | Outpatient (CLI) | payer MEDICARE | LOC: M WUC 12:16 | PROVIDERS: ATTEND Physician Assistant Medical | DX: R05.9 Cough, unspecified (principal); M21.832 Other specified acquired deformities of left forearm; M19.09 Primary osteoarthritis, other specified site; I80.8 Phlebitis and thrombophlebitis of other sites; M85.832 Other specified disorders of bone density and structure, left forearm; M85.811 Other specified disorders of bone density and structure, right shoulder; M85.812 Other specified disorders of bone density and structure, left shoulder; J84.9 Interstitial pulmonary disease, unspecified; J98.6 Disorders of diaphragm ==